=== PATIENT | male | born 1995 | race Caucasian/White ===

== ENCOUNTER 2018-03-12 01:10 | Observation (INO) | payer BC, OTHER ==
[~2018-03-12] VITALS: Ht 182.9 cm; Wt 90.3 kg
[2018-03-12] VITALS (8 sets, daily range): BP systolic 109–130; BP diastolic 66–85
[2018-03-12] MEDS ORDERED: NS IV 1000 ML 1,000 ML IV ONE ×2 (01:16→01:58)
[2018-03-12] MEDS ORDERED: PANTOPRAZOLE 40 MG/10 ML (PROTONIX) VIAL IV STA (01:16)
[2018-03-12 01:26] LABS: BASOPHILS # (AUTO) 0.1 10^3/uL (0.0-0.1); BASOPHILS % (AUTO) 1 % (0-10); EOSINOPHILS # (AUTO) 0.4 10^3/uL (0.0-0.3); EOSINOPHILS % (AUTO) 5 % (0-10); HEMATOCRIT 45 % (40-54); HEMOGLOBIN 15.8 G/DL (13.3-17.7); LYMPHOCYTES # (AUTO) 3.5 X 10^3 (1.0-4.0); LYMPHOCYTES % (AUTO) 42 % (12-44); MEAN CORPUSCULAR HEMOGLOBIN 31 PG (25-34); MEAN CORPUSCULAR HGB CONC 35 G/DL (32-36); MEAN CORPUSCULAR VOLUME 88 FL (80-99); MEAN PLATELET VOLUME 8.8 FL (7.4-10.4); MONOCYTES # (AUTO) 0.9 X 10^3 (0.0-1.0); MONOCYTES % (AUTO) 10 % (0-12); NEUTROPHILS # (AUTO) 3.4 X 10^3 (1.8-7.8); NEUTROPHILS % (AUTO) 42 % (42-75); PLATELET COUNT 505 10^3/uL (130-400); RED BLOOD COUNT 5.13 10^6/uL (4.35-5.85); WHITE BLOOD COUNT 8.3 10^3/uL (4.3-11.0)
--- NOTE | 2018-03-12 01:37 | ED General ---
General Stated Complaint: ETOH Source of Information: EMS Exam Limitations: Intoxication History of Present Illness Date Seen by Provider: March 12, 2018 Time Seen by Provider: 01:12 Initial Comments PT ARRIVES VIA EMS EMS WAS CALLED TO A LIBERTARIAN, WHERE PT WAS VERY INTOXICATED AND PASSED OUT ON THE GROUND PT VOMITED X 1 ENROUTE PT HAS BEEN UNRESPONSIVE FOR EMS. NO OTHER INFORMATION IS OBTAINABLE PSU STUDENT Allergies and Home Medications Allergies Coded Allergies: No Allergy Information Available (Unverified , 03/12/18) Patient Home Medication List Home Medication List Reviewed: No (PT UNABLE TO GIVE) Review of Systems Constitutional: other (UNABLE TO OBTAIN) Past Anazvsn-Igcgai-Avaaqf Hx Patient Social History Alcohol Use: Occasionally Uses (HEAVILY INTOXICATED 03/12/18) Recreational Drug Use: Yes (TESTED + FOR THC 03/12/18) Immunizations Up To Date Tetanus Booster (TDap): Unknown Family Medical History ALL HISTORY IS UNKOWN AT THIS TIME, PT IS TOO INTOXICATED TO TALK CLEARLY OR TO GIVE RELIABLE INFORMATION Physical Exam Vital Signs Vital Signs - First Documented 03/12/18 03/12/18 01:10 01:15 Temp 96.8 Pulse 112 Resp 16 B/P (MAP) 141/91 (108) Pulse Ox 94 O2 Delivery Room Air O2 Flow Rate 2.00 Capillary Refill : General Appearance: No Apparent Distress, WD/WN, Other (PT ESSENTIALLY OBTUNDED ON ARRIVAL. NO SNOROUS BREATHING. REEKS OF ALCOHOL. PT COVERED WITH VOMIT ) Respiratory: Normal Breath Sounds, No Accessory Muscle Use, No Respiratory Distress Cardiovascular: Regular Rate, Rhythm, No Edema, No Murmur, Normal Peripheral Pulses Gastrointestinal: Non Tender, Soft Extremity: Normal Inspection, Normal Range of Motion Neurologic/Psychiatric: Other (MENTATION NOTED ABOVE. PT MOVES ALL EXTREMITIES, BUT IS NOT FOLLOWING COMMANDS ON ARRIVAL. ) Skin: Normal Color, Warm/Dry, Other (NO EXTERNAL EVIDENCE OF TRAUMA. ) Progress/Results/Core Measures Suspected Sepsis SIRS Temperature: Pulse: Respiratory Rate: Laboratory Tests 03/12/18 01:15: White Blood Count 8.3 Blood Pressure / Mean: Laboratory Tests 03/12/18 01:15: Creatinine 0.91, Platelet Count 505H, Total Bilirubin 0.3 Results/Orders Lab Results Laboratory Tests Test 03/12/18 01:15 03/12/18 01:37 Range/Units White Blood Count 8.3 4.3-11.0 10^3/uL Red Blood Count 5.13 4.35-5.85 10^6/uL Hemoglobin 15.8 13.3-17.7 G/DL Hematocrit 45 40-54 % Mean Corpuscular Volume 88 80-99 FL Mean Corpuscular Hemoglobin 31 25-34 PG Mean Corpuscular Hemoglobin Concent 35 32-36 G/DL Red Cell Distribution Width 13.0 10.0-14.5 % Platelet Count 505 H 130-400 10^3/uL Mean Platelet Volume 8.8 7.4-10.4 FL Neutrophils (%) (Auto) 42 42-75 % Lymphocytes (%) (Auto) 42 12-44 % Monocytes (%) (Auto) 10 0-12 % Eosinophils (%) (Auto) 5 0-10 % Basophils (%) (Auto) 1 0-10 % Neutrophils # (Auto) 3.4 1.8-7.8 X 10^3 Lymphocytes # (Auto) 3.5 1.0-4.0 X 10^3 Monocytes # (Auto) 0.9 0.0-1.0 X 10^3 Eosinophils # (Auto) 0.4 H 0.0-0.3 10^3/uL Basophils # (Auto) 0.1 0.0-0.1 10^3/uL Sodium Level 145 135-145 MMOL/L Potassium Level 3.0 L 3.6-5.0 MMOL/L Chloride Level 110 H 98-107 MMOL/L Carbon Dioxide Level 18 L 21-32 MMOL/L Anion Gap 17 H 5-14 MMOL/L Blood Urea Nitrogen 8 7-18 MG/DL Creatinine 0.91 0.60-1.30 MG/DL Estimat Glomerular Filtration Rate > 60 BUN/Creatinine Ratio 9 Glucose Level 84 70-105 MG/DL Calcium Level 9.1 8.5-10.1 MG/DL Total Bilirubin 0.3 0.1-1.0 MG/DL Aspartate Amino Transf (AST/SGOT) 18 5-34 U/L Alanine Aminotransferase (ALT/SGPT) 14 0-55 U/L Alkaline Phosphatase 76 40-136 U/L Total Protein 8.1 6.4-8.2 GM/DL Albumin 4.9 H 3.2-4.5 GM/DL Serum Alcohol 407 *H <10 MG/DL Urine Color YELLOW Urine Clarity CLEAR Urine pH 6 5-9 Urine Specific [place] 1.005 L 1.016-1.022 Urine Protein 1+ H NEGATIVE Urine Glucose (UA) NEGATIVE NEGATIVE Urine Ketones NEGATIVE NEGATIVE Urine Nitrite NEGATIVE NEGATIVE Urine Bilirubin NEGATIVE NEGATIVE Urine Urobilinogen NORMAL NORMAL MG/DL Urine Leukocyte Esterase NEGATIVE NEGATIVE Urine RBC (Auto) NEGATIVE NEGATIVE Urine RBC NONE /HPF Urine WBC NONE /HPF Urine Squamous Epithelial Cells RARE /HPF Urine Crystals NONE /LPF Urine Bacteria NEGATIVE /HPF Urine Casts NONE /LPF Urine Mucus NEGATIVE /LPF Urine Culture Indicated NO Urine Opiates Screen NEGATIVE NEGATIVE Urine Oxycodone Screen NEGATIVE NEGATIVE Urine Methadone Screen NEGATIVE NEGATIVE Urine Propoxyphene Screen NEGATIVE NEGATIVE Urine Barbiturates Screen NEGATIVE NEGATIVE Ur Tricyclic Antidepressants Screen NEGATIVE NEGATIVE Urine Phencyclidine Screen NEGATIVE NEGATIVE Urine Amphetamines Screen NEGATIVE NEGATIVE Urine Methamphetamines Screen NEGATIVE NEGATIVE Urine Benzodiazepines Screen NEGATIVE NEGATIVE Urine Cocaine Screen NEGATIVE NEGATIVE Urine Cannabinoids Screen POSITIVE H NEGATIVE My Orders Orders - RENNYGAVINA K DO Monitor-Rhythm Ecg Trace Only (03/12/18 01:16) Alcohol (03/12/18 01:16) Cbc With Automated Diff (03/12/18 01:16) Comprehensive Metabolic Panel (03/12/18 01:16) Drug Screen Stat (Urine) (03/12/18 01:16) Ua Culture If Indicated (03/12/18 01:16) Saline Lock/Iv-Start (03/12/18 01:16) Ns Iv 1000 Ml (Sodium Chloride 0.9%) (03/12/18 01:16) Pantoprazole Injection (Protonix Injecti (03/12/18 01:16) O2 (03/12/18 01:16) Catheter(Urinary) Insert & Ass 03,15 (03/12/18 01:24) Chest 1 View, Ap/Pa Only (03/12/18 01:46) Saline Lock/Iv-Start (03/12/18 01:52) Lactated Ringers (Lr 1000 Ml Iv Solution (03/12/18 01:52) Saline Lock/Iv-Start (03/12/18 01:58) Ns Iv 1000 Ml (Sodium Chloride 0.9%) (03/12/18 01:58) Medications Given in ED Current Medications Medications Dose Ordered Sig/Carly Route Start Time Stop Time Status Last Admin Dose Admin Sodium Chloride 1,000 ml @ 0 mls/hr Q0M ONCE IV 03/12/18 01:16 03/12/18 01:19 DC 03/12/18 01:35 1,000 MLS/HR Vital Signs/I&O 03/12/18 03/12/18 01:10 01:15 Temp 96.8 Pulse 112 Resp 16 B/P (MAP) 141/91 (108) Pulse Ox 94 94 O2 Delivery Room Air Nasal Cannula O2 Flow Rate 2.00 Capillary Refill : Progress Note : Progress Note PT DOES WITHDRAWL TO PAIN WITH IV STICK 0130--PT NOW OPENS EYES A LITTLE AND IS ANSWERING A FEW VERY SIMPLE QUESTIONS, BUT SPEECH IS SLOW AND SLURRED. PT MORE AWAKE WITH ISLAS CATHETER PLACEMENT AND WHEN FRIENDS ARE IN ROOM, AND PT IS TALKING WITH THEM. 0205--PT NOW CRYING UNCONTROLLABLY NO DETERIORATION IN PT'S CONDITION DURING ER STAY Diagnostic Imaging Comments CXR--NO ACUTE PROCESS, PENDING RADIOLOGIST REVIEW Reviewed: Reviewed by Me Departure Communication (Admissions) 0148--SPOKE WITH DR. CONTRERAS, ACCEPTS PT FOR ADMIT Impression Primary Impression: Alcohol intoxication Additional Impressions: Hypokalemia Illicit drug use Disposition: ADMITTED INPATIENT Condition: Improved Admissions Decision to Admit Reason: Admit from ER (General) Decision to Admit/Date: March 12, 2018 Time/Decision to Admit Time: 01:45 MEGAN LAWSON DO March 12, 2018 01:37
[2018-03-12 01:45] LABS: BILIRUBIN,URINE NEGATIVE (NEGATIVE); CLARITY,URINE CLEAR; COLOR,URINE YELLOW; GLUCOSE, URINE (UA) NEGATIVE (NEGATIVE); KETONES,URINE NEGATIVE (NEGATIVE); LEUKOCYTE ESTERASE ,URINE NEGATIVE (NEGATIVE); NITRITE,URINE NEGATIVE (NEGATIVE); PH,URINE 6 (5-9); PROTEIN,URINE 1+ (NEGATIVE); UROBILINOGEN,URINE NORMAL (NORMAL)
[2018-03-12 01:45] LABS: ALANINE AMINOTRANSFERASE 14 U/L (0-55); ALBUMIN 4.9 GM/DL (3.2-4.5); ALKALINE PHOSPHATASE 76 U/L (40-136); BILIRUBIN,TOTAL 0.3 MG/DL (0.1-1.0); BUN/CREATININE RATIO 9; CALCIUM 9.1 MG/DL (8.5-10.1); CARBON DIOXIDE 18 MMOL/L (21-32); CHLORIDE 110 MMOL/L (98-107); CREATININE SERUM 0.91 MG/DL (0.60-1.30); GFR ESTIMATED > 60; GLUCOSE 84 MG/DL (70-105); SODIUM 145 MMOL/L (135-145); TOTAL PROTEIN 8.1 GM/DL (6.4-8.2)
[2018-03-12 01:52] LABS: BACTERIA,URINE NEGATIVE /HPF; SQUAMOUS EPITHELIAL CELL,UR RARE /HPF
[2018-03-12] MEDS ORDERED: LACTATED RINGERS 1,000 ML IV ONE (01:52)
[2018-03-12 02:00] LABS: AMPHETAMINE SCREEN, URINE NEGATIVE (NEGATIVE); BARBITURATE SCREEN URINE NEGATIVE (NEGATIVE); BENZODIAZEPINES SCREEN URINE NEGATIVE (NEGATIVE); CANNABINOID SCREEN, URINE POSITIVE (NEGATIVE); COCAINE SCREEN URINE NEGATIVE (NEGATIVE); METHADONE STAT NEGATIVE (NEGATIVE); METHAMPHETAMINE SCREEN URINE S NEGATIVE (NEGATIVE); OPIATE SCREEN URINE NEGATIVE (NEGATIVE); OXYCODONE STAT NEGATIVE (NEGATIVE); PROPOXYPHENE STAT NEGATIVE (NEGATIVE); TRICYCLIC ANTIDEPRESSANTS SCRE NEGATIVE (NEGATIVE)
[2018-03-12] MEDS ORDERED: D5 1/2 NS W/KCL 20 MEQ/L 1,000 ML IV SCH (05:15)
[2018-03-12] MEDS ORDERED: ONDANSETRON 4 MG/2 ML (SDV) Z0FRAN IV PRN (05:15)
[2018-03-12 07:17] LABS: BASOPHILS % (AUTO) 0 % (0-10); EOSINOPHILS % (AUTO) 0 % (0-10); HEMATOCRIT 42 % (40-54); HEMOGLOBIN 14.7 G/DL (13.3-17.7); LYMPHOCYTES # (AUTO) 1.6 X 10^3 (1.0-4.0); LYMPHOCYTES % (AUTO) 17 % (12-44); MEAN CORPUSCULAR HEMOGLOBIN 31 PG (25-34); MEAN CORPUSCULAR HGB CONC 35 G/DL (32-36); MEAN CORPUSCULAR VOLUME 90 FL (80-99); MEAN PLATELET VOLUME 8.7 FL (7.4-10.4); MONOCYTES # (AUTO) 0.5 X 10^3 (0.0-1.0); MONOCYTES % (AUTO) 6 % (0-12); NEUTROPHILS # (AUTO) 6.9 X 10^3 (1.8-7.8); NEUTROPHILS % (AUTO) 77 % (42-75); PLATELET COUNT 409 10^3/uL (130-400); RED BLOOD COUNT 4.74 10^6/uL (4.35-5.85); RED CELL DISTRIBUTION WIDTH 13.2 % (10.0-14.5); WHITE BLOOD COUNT 9.1 10^3/uL (4.3-11.0)
[2018-03-12 07:37] LABS: ALANINE AMINOTRANSFERASE 12 U/L (0-55); ALBUMIN 4.2 GM/DL (3.2-4.5); ALKALINE PHOSPHATASE 64 U/L (40-136); BILIRUBIN,TOTAL 0.3 MG/DL (0.1-1.0); BUN/CREATININE RATIO 8; CALCIUM 8.1 MG/DL (8.5-10.1); CARBON DIOXIDE 24 MMOL/L (21-32); CHLORIDE 112 MMOL/L (98-107); CREATININE SERUM 0.84 MG/DL (0.60-1.30); GFR ESTIMATED > 60; GLUCOSE 116 MG/DL (70-105); MAGNESIUM 2.1 MG/DL (1.8-2.4); POTASSIUM 4.1 MMOL/L (3.6-5.0); SODIUM 146 MMOL/L (135-145); TOTAL PROTEIN 6.8 GM/DL (6.4-8.2)
[2018-03-12] MEDS ORDERED: CATHETER FLUSH 10 ML SYR IV PRN (08:00)
--- NOTE | 2018-03-12 08:12 | Diagnostic Imaging Report ---
CHEST 1 VIEW, AP/PA ONLY Indication: Vomiting and unresponsive. Comparison: None available. Findings: No focal airspace disease in the visualized lungs. Please note that the posterior lower lobes are poorly evaluated by portable radiography. No pleural effusion or pneumothorax. Normal cardiomediastinal silhouette. Impression: No acute cardiopulmonary process by portable radiography. Dictated by: Dictated on workstation # [id number]
[2018-03-12] MEDS ORDERED: PANTOPRAZOLE 40 MG/10 ML (PROTONIX) VIAL IV SCH (09:00)
--- NOTE | 2018-03-12 09:35 | Short Stay Summary-Hospitalist ---
History of Present Illness HPI/Chief Complaint Pt is a 22yoCM with no past medical history who presented to the ER via EMS after being found on the ground at a green party. He reports he remembers nothing of last night and can not give me any details other than all he remembers was drinking at his house. He states he blacked out after that. Per ER note EMS was called as he was passed out on the ground a green party and unresponsive. He vomited x1 en route but otherwise remained minimally responsive even to IV placement. He was was found to have an alcohol level of 408 and was admitted for observation to the ICU. This morning he is alert and awake. He complains of a headache and states "I'm just hungover." Source: patient Exam Limitations: intoxication Date Seen 03/12/18 Time Seen by Provider: 09:33 Attending Physician Danny Mcmillan MD PCP Unknown Referring Physician Date of Admission March 12, 2018 at 01:45 Home Medications & Allergies Home Medications Reviewed patient Home Medication Reconciliation performed by pharmacy medication reconciliations water quality technician and/or nursing. Patients Allergies have been reviewed. Allergies Allergies Coded Allergies No Allergy Information Available (Unverified03/12/18) Past Easuaur-Rmubfl-Biiuzq Hx Past Med/Social Hx: Reviewed Nursing Past Med/Soc Hx, Reviewed and Corrections made Patient Social History Alcohol Use: Occasionally Uses Recreational Drug Use: Yes (TESTED + FOR THC 03/12/18) Smoking Status: Never a Smoker Physical Abuse Screen: No Sexual Abuse: No Recent Foreign Travel: No Contact w/other who traveled: No Recent Hopitalizations: No Recent Infectious Disease Expo: No Immunizations Up To Date Tetanus Booster (TDap): Unknown Family History Reviewed Nursing Family Hx No Pertinent Family Hx Review of Systems Constitutional: No chills, No fever EENTM: no symptoms reported, nose congestion Respiratory: No cough, No dyspnea on exertion, No short of breath Cardiovascular: no symptoms reported Gastrointestinal: No abdominal pain, No hematemesis; nausea; No vomiting Genitourinary: No dysuria, No frequency; other (discomfort with catheter) Musculoskeletal: no symptoms reported Skin: no symptoms reported Psychiatric/Neurological: Headache; Denies Numbness, Denies Tingling Physical Exam Physical Exam Vital Signs Vital Signs - First Documented 03/12/18 03/12/18 01:10 01:15 Temp 96.8 Pulse 112 Resp 16 B/P (MAP) 141/91 (108) Pulse Ox 94 O2 Delivery Room Air O2 Flow Rate 2.00 Capillary Refill : Less Than 3 Seconds General Appearance: No Apparent Distress, WD/WN HEENT: PERRL/EOMI, Moist Mucous Membranes; No Scleral Icterus (L), No Scleral Icterus (R) Neck: Non Tender, Supple; No JVD, No Thyromegaly Respiratory: Lungs Clear, No Respiratory Distress Cardiovascular: Regular Rate, Rhythm, No Murmur Gastrointestinal: Normal Bowel Sounds, Non Tender, Soft Extremity: Normal Capillary Refill, No Calf Tenderness Neurologic/Psychiatric: Alert, Oriented x3, No Motor/Sensory Deficits, Normal Mood/Affect Skin: Normal Color, Warm/Dry Results Results/Procedures Labs Laboratory Tests 03/12/18 01:15 03/12/18 07:05 Patient resulted labs reviewed. Imaging: Reviewed Imaging Report Short Stay Diagnosis Discharge Diagnosis-Short Stay Admission Diagnosis Alcohol intoxication Final Discharge Diagnosis Alcohol intoxication Conclusion Plan See below Diagnosis/Problems Diagnosis/Problems (1) Alcohol intoxication Status: Acute Assessment & Plan: Was too obtunded to DC home safely from ER Monitor overnight, now awake and alert Will DC home with sober mail truck driver to pick him up Advised avoidance of binge drinking Qualifiers: Qualified Codes: F10.929 - Alcohol use, unspecified with intoxication, unspecified (2) Hypokalemia Status: Resolved Assessment & Plan: Replaced in fluids Clinical Quality Measures DVT/VTE Risk/Contraindication: Risk Factor Score Per Nursin RFS Level Per Nursing on Admit: 1=Low/No VTE PPX DANNY MCMILLAN MD March 12, 2018 09:35
[2018-03-12] MEDS ORDERED: ONDANSETRON 4 MG/5 ML ORAL SOLN (ZOFRAN) 5 ML PO NR (09:45)
== END 2018-03-12 09:37 | disposition home or self-care (01) ==
LOC: ER 01:15 → UNDOADMOB 01:45 → ICU 01:45 → UNDODISOB 10:15
PROVIDERS: ADMIT Family Medicine; ATTEND Family Medicine
DX: F10.129 Alcohol abuse with intoxication, unspecified (principal); E87.6 Hypokalemia; F12.90 Cannabis use, unspecified, uncomplicated; Y90.8 Blood alcohol level of 240 mg/100 ml or more
CPT/HCPCS: 36415; 51702; 71045; 80053; 80306; 80320; 81000; 83735; 84100; 85025; 93041; 96361; 96374; G0378

== ENCOUNTER 2018-03-29 19:27 | Emergency (ER) | payer BC, OTHER ==
[~2018-03-29] VITALS: Ht 180.3 cm; Wt 93.0 kg
--- NOTE | 2018-03-29 19:48 | ED Upper Extremity ---
General Stated Complaint: WC, LACERATION TO L THUMB Source: patient Exam Limitations: no limitations History of Present Illness Date Seen by Provider: March 29, 2018 Time Seen by Provider: 19:44 Initial Comments laceration to the pad of the left thumb that occurred while at work at [employer]. He works in the kitchen. Cut it on knife. Onset: this evening Severity: moderate Pain/Injury Location: left thumb Modifying Factors: Worse With Movement Allergies and Home Medications Allergies Coded Allergies: No Allergy Information Available (Unverified , 03/12/18) Home Medications No Active Prescriptions or Reported Meds Patient Home Medication List Home Medication List Reviewed: Yes Constitutional: see HPI EENTM: see HPI Respiratory: no symptoms reported Cardiovascular: no symptoms reported Genitourinary: no symptoms reported Musculoskeletal: no symptoms reported Skin: see HPI Psychiatric/Neurological: No Symptoms Reported Past Bkcrjtc-Laqkbg-Utnobq Hx Patient Social History Recent Foreign Travel: No Contact w/Someone Who Travel: No Recent Hopitalizations: No Immunizations Up To Date Tetanus Booster (TDap): Unknown Past Medical History Surgeries: No Respiratory: No Cardiac: No Neurological: No Genitourinary: No Gastrointestinal: No Musculoskeletal: No Endocrine: No HEENT: No Cancer: No Psychosocial: No Integumentary: No Family Medical History No Pertinent Family Hx Physical Exam Vital Signs Capillary Refill : General Appearance: WD/WN, no apparent distress HEENT: PERRL/EOMI, normal ENT inspection Neck: non-tender, full range of motion Respiratory: no respiratory distress, no accessory muscle use Shoulder: normal inspection, non-tender Elbow/Forearm: normal inspection, non-tender Wrist: Yes normal inspection, Yes non-tender Hand: Left, laceration (1 cm laceration to the pad of the left thumb with depth to the subcutaneous tissues.) Neurologic/Tendon: normal sensation, normal motor functions Neurologic/Psychiatric: alert, normal mood/affect, oriented x 3 Skin: warm/dry Comments ull flexion ability of the thumb with distal sensation and capillary refill intact. Procedures/Interventions Wound Location: Upper Extremities Wound Length (cm): 1 Wound's Depth, Shape: linear, sub Q Wound Explored: clean Betadine Prep?: Yes Anesthesia: 1% Lidocaine Volume Anesthetic (ccs): 1 Suture: Prolene Suture Size: 5-0 Number of Sutures: 3 Layer Closure?: 1 Number Deep Layer Sutures: 0 anesthetized with 2% lidocaine, scrubbed with chlorhexidine/saline solution, closed with 3 simple a ruptured sutures size 5-0 Prolene. Departure Impression Primary Impression: Laceration of thumb Disposition: 01 HOME, SELF-CARE Condition: Stable Departure-Patient Inst. Decision time for Depature: 19:47 Referrals: ALBIN GUTIERREZ MD (PCP/Family) Primary Care Physician Patient Instructions: Laceration Repair With Stitches (DC) Add. Discharge Instructions: . Keep this clean and covered and drys. You may shower allowing water run over it this evening.ut do not submerge it in water such as a hot tub, dish sink or bathtub until the stitches have been removed. Return here to the emergency room in about 7-10 daysto have the stitches removed. You do not need an appointment, simply show up Return before then for any sign of infection such as redness or swelling or pus like drainage. Scripts No Active Prescriptions or Reported Meds BERTO LEAL APRN March 29, 2018 19:48
[2018-03-29 19:51] VITALS: BP 154/95
== END 2018-03-29 19:51 | disposition home or self-care (01) ==
LOC: EDUNIT# 19:27 → ER 19:29
DX: S61.012A Laceration without foreign body of left thumb without damage to nail, initial encounter (principal); W26.0XXA Contact with knife, initial encounter; Z99.0 Dependence on aspirator
CPT/HCPCS: 12001